=== PATIENT | male | born 1995 | race Caucasian/White ===

== ENCOUNTER 2019-09-18 17:06 | Emergency (ER) | payer OTHER ==
[2019-09-18 17:16] VITALS: BP 166/87
[2019-09-18] MEDS ORDERED: AMOX/CLAV 875 MG/125 MG TABLET PO STA (17:30)
[2019-09-18] MEDS ORDERED: BUFFERED LIDOCAINE 10 ML SYRINGE SUBQ STA (17:31)
--- NOTE | 2019-09-18 17:31 | ED Physician Documentation ---
PD HPI UPPER EXT INJURY - Stated complaint Stated Complaint: DOG BITE - Chief complaint Chief Complaint: Wound - History obtained from History obtained from: Patient (4-year-old gentleman, active duty in the [employer] and up-to-date on tetanus was bitten by a dog while running today. It happened about an hour and a half ago.) Review of Systems Constitutional: reports: Reviewed and negative Cardiac: reports: Reviewed and negative Respiratory: reports: Reviewed and negative PD PAST MEDICAL HISTORY - Past Medical History Past Medical History: No - Past Surgical History Past Surgical History: No - Present Medications Home Medications: Ambulatory Orders Medication Instructions Recorded Confirmed Amox/Clav 875/125 [Augmentin] 1 each PO Q12H #14 tablet 09/18/19 - Allergies Allergies/Adverse Reactions: Allergies Allergy/AdvReac Type Severity Reaction Status Date / Time No Known Drug Allergies Allergy Verified 09/18/19 17:14 - Social History Does the pt smoke?: No Smoking Status: Never smoker Does the pt drink ETOH?: Yes Does the pt have substance abuse?: No - Immunizations Immunizations are current?: Yes - POLST Patient has POLST: No PD ED PE NORMAL - Vitals Vital signs reviewed: Yes - General General: Alert and oriented X 3, No acute distress - Extremities Extremities: Other (He has 3 lacerations near the Lateral antecubital fossa and one laceration on the medial antecubital fossa. Distal pulses, sensation, and motor strength are all normal.) - Psych Psych: Normal mood, Normal affect Results - Vitals Vitals: Vital Signs - 24 hr 09/18/19 17:14 Temperature 36.7 C Heart Rate 56 L Respiratory 15 Rate Blood Pressure 166/87 H O2 Saturation 99 Oxygen O2 Source Room air Procedures - Laceration (location) 4 lacerations totaling 3 cm on the right upper extremity Length in cm: 3 Wound type: Linear, Superficial Anesthesia: Lidocaine 1%, With bicarb Wound Preparation: Irrigated copiously NS Skin layer closure: Nylon, Interrupted, Size #-0 - enter number (4-0), Sutures - enter # (4) Other: Tetanus UTD Complexity: Simple Departure - Departure Disposition: 01 Home, Self Care Clinical Impression: Animal bite with open wound Condition: Good Record reviewed to determine appropriate education?: Yes Instructions: ED Bite Animal General Prescriptions: Amox/Clav 875/125 [Augmentin] 1 each PO Q12H #14 tablet Comments: Come back for any signs of infection which would include: Redness, swelling, drainage, increased pain, or fevers. You can wash it soap and water. Keep it covered and moist with bacitracin ointment which is available over the counter; avoid neosporin. Follow-up with your physician in 10 days for suture removal. Your blood pressure was elevated today on check into the emergency department. This does not mean that you have hypertension, it is a common phenomenon to come to the emergency department and have elevated blood pressure. I recommend that you see your primary care physician within the week to have it rechecked when you are feeling better.
== END 2019-09-18 18:09 | disposition home or self-care (01) ==
LOC: ED 17:06
DX: S51.051A Open bite, right elbow, initial encounter (principal); S51.851A Open bite of right forearm, initial encounter; W54.0XXA Bitten by dog, initial encounter; Y93.02 Activity, running; R03.0 Elevated blood-pressure reading, without diagnosis of hypertension
CPT/HCPCS: 12002; 99283; A9270

== ENCOUNTER 2019-09-28 16:21 | Emergency (ER) | payer OTHER ==
[2019-09-28 16:28] VITALS: BP 142/68
--- NOTE | 2019-09-28 16:40 | ED Physician Documentation ---
PD HPI WOUND RECHECK - Stated complaint Stated Complaint: SUTURE REMOVAL - Chief complaint Chief Complaint: Wound - Histroy obtained from History obtained from: Patient - History of Present Illness Location: Right Upper Extremity Timing - onset: How many days ago (10) Associated symptoms: No: Fever, Redness, Swelling, Drainage Recently seen: Emergency Dept (10 days ago) Review of Systems Constitutional: denies: Fever, Chills PD PAST MEDICAL HISTORY - Past Medical History Cardiovascular: None Respiratory: None Neuro: None Endocrine/Autoimmune: None - Past Surgical History Past Surgical History: No - Present Medications Home Medications: Ambulatory Orders Medication Instructions Recorded Confirmed Amox/Clav 875/125 [Augmentin] 1 each PO Q12H #14 tablet 09/18/19 - Allergies Allergies/Adverse Reactions: Allergies Allergy/AdvReac Type Severity Reaction Status Date / Time No Known Drug Allergies Allergy Verified 09/28/19 16:24 - Social History Does the pt smoke?: No Smoking Status: Never smoker Does the pt drink ETOH?: Yes Does the pt have substance abuse?: No - Immunizations Immunizations are current?: Yes - POLST Patient has POLST: No PD ED PE NORMAL - Vitals Vital signs reviewed: Yes - General General: Alert and oriented X 3, No acute distress, Well developed/nourished - Extremities Extremities: Other (right elbow/forearm area with healing wound with sutures. No signs of infection. ) Results - Vitals Vitals: Vital Signs - 24 hr 09/28/19 16:24 Temperature 36.5 C Heart Rate 57 L Respiratory 14 Rate Blood Pressure 142/68 H O2 Saturation 99 Oxygen O2 Source Room air PD MEDICAL DECISION MAKING - ED course Complexity details: considered differential (sutures out by nursing. ), d/w patient Departure - Departure Disposition: 01 Home, Self Care Clinical Impression: Visit for suture removal Condition: Stable Record reviewed to determine appropriate education?: Yes Instructions: ED Wound Check Sutr Remove No Infec Follow-Up: NAKUL Benton [Provider Group] Comments: Continue some ointment and dressing to the area once or twice daily until fully healed. Discharge Date/Time: 09/28/19 16:45
== END 2019-09-28 16:45 | disposition home or self-care (01) ==
LOC: ED 16:21
DX: S51.051D Open bite, right elbow, subsequent encounter (principal); S51.851D Open bite of right forearm, subsequent encounter; W64.XXXD Exposure to other animate mechanical forces, subsequent encounter
CPT/HCPCS: 99282